=== PATIENT | female | born 1965 | race Caucasian/White ===

== ENCOUNTER 2022-04-27 14:58 | Outpatient (CLI) | payer OTHER, SELFPAY ==
--- OUTSIDE RECORDS SUMMARY | 2022-04-08 09:38 | XMS_ITS | Continuity of Care Document ---
:1965 Author Care Team Providers Name Role Phone MD Alize Wiley Attending Physician MD Alize Wiley Primary Care Physician Allergies, Adverse Reactions, Alerts No known allergies Social History Smoking Status Status Start Date End Date Date of Observat ion Never smoked tobacco January 17, 2022 1:34pm (finding) Additional Data Assigned Sex Female Problems Active Problems Medical Problem Onset Date Status Exposure to COVID-19 virus Active Medications Medication Status Dose Units Route Directions Qty Days Start End Ins tructions Date Date Chlorthalidon Active 25 MG PO Daily December e 2021 9:29am Propranolol Active 10 MG PO Twice A Day March Hcl 2021 4:08pm Albuterol Discontin 2 PUFF INH Every 4 15 April Novemb Sulfate ued Hours as , er (Proair Hfa) needed 2020 09, 90 Mcg/Puff 1:05pm 2019 INH 2:25pm Chlorthalidon Discontin 25 MG PO Daily December e ued , 2021 1:08pm 9:29am Chlorthalidon Discontin 25 MG PO Daily December Due to recheck in clinic and fasting labs. Please set up e ued r , an appointmen t in October for this. 2020 2021 7:52am 1:08pm Chlorthalidon Discontin 25 MG PO Daily February e ued , er 2020 3rd, 1:03pm 2020 7:52am Chlorthalidon Discontin 25 MG PO Daily February e ued r , 2019 2:02pm 1:03pm Diphtheria/Te Discontin 0.5 ML IM Once 1 Decemb tanus/Acell ued r , er Pertussis 2019, (Adacel) 0.5 8:00am 2019 Ml INJ 8:22am Influenza Discontin 0.5 ML IM Once Julyobe Virus Vac ued 3rd, r Recomb Hem 2019 07, (Flublok 4:52pm 2018 Quadrivalent 9:58am 2018 0.5 Ml) 1 Inj INJ Meclizine Hcl Discontin 12.5- MG PO Four Times Dece A pril (Meclizine ued 25 Daily r 4th, 4th, 25) 25 Mg TAB 2019 2021 2:02pm 12:02p m Norethindrone Discontin 1 TAB PO April - ued , Estradiol (T 2019 (Ortho-Novum 12:52p ) 1 m Tab TAB Prednisone Discontin 20 MG PO Twice A Day Sep ued r , er 2020 , 2:52pm 2019 1:08pm Prednisone Discontin 20-60 MG PO Daily Ud April 6 0 MG PO DAILY FOR 3 DAYS, THEN ued , er 40 MG PO DAILY FOR 3 DAYS, THEN 2020 09, 20 MG PO DAILY FOR 3 DAYS. 1:05pm 2019 2:25pm Propranolol Discontin 10 MG PO Twice A Day December Hcl ued , 2021 9:28am 4:08pm Immunizations Immunization Event Date Not Given Dose [employer]ine Reason Number Number Informatio n Statement (VIS) Deta il COVID-19 Pfizer January 02 PFIZER-BIONTECH [id number] 2020 COVID-19 Pfizer January 23 2 PFIZER-BIONTECH [id number] 2020 Influenza July 16 PROTIEN [id number] 2018 SCIENCES Influenza July 22, 2 [id number] 2020 Tetanus/Diptheri September 15 a 2019 Tdap September 15 SANOFI [id number] (adolescent/adul 2019 t) Insurance Providers Guarantor Antione Hay Address [address] [place] [id number] Contact Info. Home Phone: Payer Policy Id Coverage Id Subscriber's Subscriber Id Effective E xpiration Name Date Date [id number] Roland Hay October Ppo J 2021
--- NOTE | 2022-04-27 15:00 | CRLHL7_ITS ---
For Patients: As a result of the Century Cures Act, medical imaging exams and procedure reports are released immediately into your electronic medical record. You may view this report before your referring provider. If you have questions, please contact your health care provider. BILATERAL MAMMOGRAM WITH COMPUTER-AIDED DETECTION TECHNIQUE: CC and MLO views were obtained. These mammographic images have been obtained using full-field digital technique. These mammographic images were interpreted with the benefit of computer-aided detection. COMPARISON FILM: 06/01/2017, 03/19/2013. FINDINGS: There are scattered areas of fibroglandular density IMPRESSION: There is no radiographic evidence for malignancy. ASSESSMENT: BI-RADS Category 1: Negative RECOMMENDATION: Routine screening mammogram in 1 year. A lay language report of this examination will be provided to the patient. Jose Escamilla M.D. Diagnostic Radiologist [email or web address] Transcribed: 3:14 p.m. SUSAN/Dictated by: Jose Escamilla MD @ 04/29/2022 2:25:00 PM (Electronically Signed)
== END 2022-04-27 14:59 | disposition home or self-care (01) ==
LOC: MAMMO 14:59
PROVIDERS: PCP Family Medicine; Visit Provider Family Medicine
DX: Z12.31 Encounter for screening mammogram for malignant neoplasm of breast (principal)
CPT/HCPCS: 77063; 77067

== ENCOUNTER 2023-04-19 09:29 | Outpatient (CLI) | payer OTHER, SELFPAY | END 2023-04-19 09:30 | disposition home or self-care (01) | PROVIDERS: PCP Family Medicine; Visit Provider Family Medicine | DX: I10 Essential (primary) hypertension (principal) | CPT/HCPCS: 80048 ==

== ENCOUNTER 2024-07-03 10:52 | Outpatient (CLI) | payer OTHER, SELFPAY | END 2024-07-03 10:53 | disposition home or self-care (01) | PROVIDERS: PCP Family Medicine; Visit Provider Family Medicine | DX: I10 Essential (primary) hypertension (principal); Z13.220 Encounter for screening for lipoid disorders | CPT/HCPCS: 80048; 80061 ==

== ENCOUNTER 2025-04-08 17:32 | Outpatient (CLI) | payer OTHER, SELFPAY ==
--- NOTE | 2025-04-08 17:40 | MM_ITS ---
Patient: ANTIONE VALLES Facility:?[facility] Patient ID:?[id number] Site Patient ID:?[id number]. Site :?[id number] Study:?XRay-Breast 3D Nicholas SCREENING-04/08/2025 5:57:22 PM Ordering Physician:?Saurabh Chase Final Report: INDICATION: BILATERAL SCREENING MAMMOGRAM, ASYMPTOMATIC 59 Y/O FEMALE COMPARISON: 04/27/2022, 06/01/2017, 03/19/2013 TECHNIQUE: Digital mammogram in CC and MLO projections including computer-aided detection (CAD) and tomosynthesis. BREAST COMPOSITION: There are scattered areas of fibroglandular density. FINDINGS: No suspicious findings. ASSESSMENT: BI-RADS 1 Negative RECOMMENDATION: Annual screening mammogram. A lay language report of this examination will be provided to the patient. Dictated by: Jose Escamilla MD @ 04/10/2025 11:10:10 Signed by:?Jose Escamilla MD @04/10/2025 11:10:10 AM (Electronic Signature)
== END 2025-04-08 17:33 | disposition home or self-care (01) ==
PROVIDERS: PCP Family Medicine; Visit Provider Family Medicine
DX: Z12.31 Encounter for screening mammogram for malignant neoplasm of breast (principal)
CPT/HCPCS: 77063; 77067